=== PATIENT | female | born 2000 | race Caucasian/White ===

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

== ENCOUNTER 2020-12-14 13:18 | Emergency (ER) | payer BC, MEDICAID ==
[2020-12-14] MEDS ORDERED: Metoclopramide 10 MG/2 ML SDV IM ONE (14:07)
[2020-12-14] MEDS ORDERED: Ketorolac 30 MG/ML SDV IM ONE (14:07)
[2020-12-14] MEDS ORDERED: diphenhydrAMINE 50 MG/ML SDV IM ONE (14:07)
--- NOTE | 2020-12-14 14:41 | EDM.PDOC ---
ED HPI GENERAL MEDICAL PROBLEM - General Chief Complaint: Headache Stated Complaint: MIGRAINE X 4 DAYS SENT BY [facility] Time Seen by Provider: 12/14/20 13:32 Source of Information: Reports: Patient, RN Notes Reviewed History Limitations: Reports: No Limitations - History of Present Illness INITIAL COMMENTS - FREE TEXT/NARRATIVE: Patient is a 20-year-old female who presents to the ER for a headache that has been present for the past 4 days. Patient notes she has a history of allergies, and she is quite congested and has been this way for the last week. Notes that her headache is between her eyes, and into her temples. States that when she turns her head certain ways, she sees some spots. She does call this a migraine headache however she has not been diagnosed with any sort of migraine issues. She has been using [id number] Claritin for allergy purposes, and use 3 tablets of ibuprofen yesterday at noon but has not taken anything today. She says she is light sensitive but is not sound sensitive. Not having any other sick-like symptoms fever/chills, cough/shortness of breath. She is not on any sort of medications for headache prophylaxis. Headache Pain Score (Numeric/FACES): 5 - Related Data Allergies Allergy/AdvReac Type Severity Reaction Status Date / Time pet dander Allergy Rash Uncoded 12/14/20 13:30 Home Meds: Home Meds Ibuprofen [Motrin] 600 mg PO Q6H PRN 12/14/20 [History] Past Medical History - Past Health History Medical/Surgical History: Denies Medical/Surgical History Respiratory History: Reports: Asthma Gastrointestinal History: Reports: GERD [employer] History: Reports: Psychiatric History: Reports: Anxiety Endocrine/Metabolic History: Reports: Obesity/BMI 30+ - Past Surgical History HEENT Surgical History: Reports: Oral Surgery Social & Family History - Family History Family Medical History: No Pertinent Family History - Tobacco Use Tobacco Use Status *Q: Never Tobacco User Second Hand Smoke Exposure: Yes - Caffeine Use Caffeine Use: Reports: Coffee, Energy Drinks, Soda, Tea - Recreational Drug Use Recreational Drug Use: No ED ROS GENERAL - Review of Systems Review Of Systems: Comprehensive ROS is negative, except as noted in HPI. - Physical Exam Exam: See Below Exam Limited By: No Limitations General Appearance: Alert, WD/WN, No Apparent Distress Throat/Mouth: Normal Inspection, Normal Lips, Normal Teeth, Normal Gums, Normal Oropharynx, Normal Voice (pt has a very nasal voice and does sound fairly congested), No Airway Compromise Head Exam: Sinus Tenderness (bilateral maxillary and frontal) Neck: Normal Inspection Respiratory/Chest: No Respiratory Distress, Lungs Clear, Normal Breath Sounds, No Accessory Muscle Use, Chest Non-Tender Cardiovascular: Normal Peripheral Pulses, Regular Rate, Rhythm, No Edema GI/Abdominal: Normal Bowel Sounds, Soft, Non-Tender, No Distention, No Mass Neuro Exam (Abbreviated): Alert, Oriented, Normal Cognition, No Motor/Sensory Deficits Extremities: Normal Inspection, Normal Capillary Refill Psychiatric: Normal Affect, Normal Mood Skin Exam: Warm, Dry, Intact, Normal Color, No Rash Course - Vital Signs Last Recorded V/S: Last Vital Signs Temp 97.3 F 12/14/20 13:27 Pulse 82 12/14/20 13:27 Resp 16 12/14/20 13:27 BP 125/81 12/14/20 13:27 Pulse Ox 99 12/14/20 13:27 - Orders/Labs/Meds Meds: Medications Discontinued Medications Generic Name Dose Route Start Last Admin Trade Name Pily PRN Reason Stop Dose Admin Diphenhydramine HCl 25 mg 12/14/20 14:07 12/14/20 14:17 Diphenhydramine 50 Mg/Ml Sdv IM 12/14/20 14:08 25 mg ONETIME ONE Administration Ketorolac Tromethamine 30 mg 12/14/20 14:07 12/14/20 14:18 Ketorolac 30 Mg/Ml Sdv IM 12/14/20 14:08 30 mg ONETIME ONE Administration Metoclopramide HCl 10 mg 12/14/20 14:07 12/14/20 14:18 Metoclopramide 10 Mg/2 Ml Sdv IM 12/14/20 14:08 10 mg ONETIME ONE Administration - Re-Assessments/Exams Free Text/Narrative Re-Assessment/Exam: 12/14/20 14:51 Patient presents to the ER for her headache, I do believe this is more of a sinu s/tension headache, patient did not want IV placed I did order some IM medications, she notes that her headache is improving, but would like to go home I did go over sinus congestion medications that she can take, she is willing to try these at home to see if this helps. Departure - Departure Time of Disposition: 14:51 Disposition: Home, Self-Care 01 Condition: Good Clinical Impression: Sinus headache - Discharge Information *PRESCRIPTION DRUG MONITORING PROGRAM REVIEWED*: No *COPY OF PRESCRIPTION DRUG MONITORING REPORT IN PATIENT МАРИЯ: No Instructions: Sinus Headache, [id number] Referrals: PCP,None [Primary Care Provider] - Forms: ED Department Discharge, ED Return to Work/School Form Additional Instructions: You were evaluated in the ED for your headache. You were given a combination of medications for management. This did seem to provide you pretty good relief of your symptoms. Recommend that you go home and rest in a quiet, darkened room. Try also to keep well hydrated. Recommend you try Claritin-D, which is a medication you will need to talk to the pharmacist for, this should help provide actual decongestants, to help relieve some of the congestion in your head. You may also continue to take ibuprofen every 6 hours as needed for ongoing headache relief. Please note this may take a few days, to get some relief from the sinus congestion. Please return to the ED if your symptoms should change or worsen. Sepsis Event Note (ED) - Evaluation Sepsis Screening Result: No Definite Risk - Focused Exam Vital Signs: Vital Signs Temp Pulse Resp BP Pulse Ox 12/14/20 13:27 97.3 F 82 16 125/81 99
== END 2020-12-14 15:07 | disposition home or self-care (01) ==
LOC: JD.ED 13:18
DX: R51.9 Headache, unspecified (principal); J45.909 Unspecified asthma, uncomplicated; E66.9 Obesity, unspecified; Z77.22 Contact with and (suspected) exposure to environmental tobacco smoke (acute) (chronic); Z68.38 Body mass index [BMI] 38.0-38.9, adult; Z91.048 Other nonmedicinal substance allergy status
CPT/HCPCS: 96372; 99283; J1200; J1885; J2765

== ENCOUNTER 2022-06-18 02:45 | Inpatient (IN) | payer BC, MEDICAID ==
[2022-06-18] MEDS ORDERED: Lidocaine 1% 50 ML MDV ONE (03:22)
[2022-06-18] MEDS ORDERED: Sodium Chloride 0.9% 10 ML Syringe FLUSH PRN (03:37)
[2022-06-18] MEDS ORDERED: Lactated Ringers 1,000 ML IV SCH (03:45)
[2022-06-18] MEDS ORDERED: Benzocaine/Menthol 20%-0.5% Spray 78 GM Cannister TOP PRN (04:05)
[2022-06-18] MEDS ORDERED: Acetaminophen 325 MG Tab PO PRN (04:05)
[2022-06-18] MEDS ORDERED: Witch Hazel Medicated Pads 40/Jar TOP PRN (04:05)
[2022-06-18] MEDS ORDERED: Docusate Sodium 100 MG Cap PO PRN (04:05)
[2022-06-18] MEDS ORDERED: Lidocaine 1% 20 ML MDV INJECT ONE (04:05)
[2022-06-18] MEDS: Ibuprofen 600 MG Tab PO PRN ×3 (04:17→22:15)
[2022-06-18] MEDS ORDERED: Lidocaine 1% 50 ML MDV INJECT ONE (04:30)
[2022-06-18] MEDS ORDERED: Sodium Chloride 0.9% 10 ML Syringe FLUSH SCH (09:00)
[2022-06-19] MEDS: Ibuprofen 600 MG Tab PO PRN (09:29)
== END 2022-06-19 16:20 | disposition home or self-care (01) | DRG 560 ==
LOC: JD.OBCHECK 02:45 → JD.OB 02:46 → JD.OBCHECK 02:49 → JD.OB 02:50 → UNDOADMOB 02:50 → INTOOBSV 03:06 → OBSVTOIN 03:06
PROVIDERS: ADMIT Obstetrics & Gynecology; ATTEND Obstetrics & Gynecology
PROC: 10E0XZZ Delivery of Products of Conception, External Approach (ICD-10-PCS; principal; 2022-06-18)
PROC: 0HQ9XZZ Repair Perineum Skin, External Approach (ICD-10-PCS; 2022-06-18)
DX: O99.62 Diseases of the digestive system complicating childbirth (principal); K21.9 Gastro-esophageal reflux disease without esophagitis; O99.52 Diseases of the respiratory system complicating childbirth; J45.909 Unspecified asthma, uncomplicated; O99.334 Smoking (tobacco) complicating childbirth; F17.200 Nicotine dependence, unspecified, uncomplicated; O70.0 First degree perineal laceration during delivery; Z37.0 Single live birth; Z3A.38 38 weeks gestation of pregnancy
CPT/HCPCS: 36415; 59409; 85027; 86592; 86850; 86900; 86901; A9270-GY; J2001

== ENCOUNTER 2023-01-11 10:33 | Emergency (ER) | payer BC, MEDICAID ==
[2023-01-11] MEDS ORDERED: Sodium Chloride 0.9% 1,000 ML IV ONE (11:17)
[2023-01-11] MEDS ORDERED: Ondansetron 4 MG/2 ML SDV IVPUSH ONE (11:17)
[2023-01-11 11:32] LABS: BASOPHILS ABSOLUTE AUTO 0.02 K/mm3 (0.01-0.08); BASOPHILS PERCENT AUTO 0.2 % (0.1-1.2); EOSINOPHILS ABSOLUTE AUTO 0.15 K/mm3 (0.04-0.36); EOSINOPHILS PERCENT AUTO 1.3 (0.7-5.8); HEMATOCRIT 40.9 % (34.1-44.9); IMMATURE GRAN ABSOLUTE AUTO 0.02 K/mm3 (0.00-0.10); IMMATURE GRAN PERCENT AUTO 0.2 % (<=1.0); LYMPHOCYTES ABSOLUTE AUTO 1.77 K/mm3 (1.18-3.74); LYMPHOCYTES PERCENT AUTO 15.2 % (19.3-51.7); MEAN CORPUSCULAR HGB CONC 34.2 g/dl (32.2-35.5); MEAN CORPUSCULAR VOLUME 81.8 fl (79.4-94.8); MEAN PLATELET VOLUME 9.2 fl (9.4-12.3); MONOCYTES ABSOLUTE AUTO 0.69 K/mm3 (0.24-0.36); MONOCYTES PERCENT AUTO 5.9 % (4.7-12.5); NEUTROPHILS PERCENT AUTO 77.2 % (34.0-71.1); PLATELET COUNT,PLT 320 K/mm3 (182-369); WHITE BLOOD CELL COUNT,WBC 11.65 K/mm3 (3.98-10.04)
[2023-01-11 12:10] LABS: ALBUMIN 3.5 g/dl (3.4-5.0); ANION GAP 15.5 (5-15); BILIRUBIN TOTAL 0.8 mg/dL (0.2-1.0); CALCIUM 8.8 mg/dL (8.5-10.1); CREATININE 0.7 mg/dL (0.55-1.02); EST CRCL DRUG DOSING (CG) 95.13 mL/min; MAGNESIUM 1.9 mg/dL (1.8-2.4); POTASSIUM,K 3.5 mEq/L (3.5-5.1); PROTEIN TOTAL,TP 7.2 g/dl (6.4-8.2)
== END 2023-01-11 13:40 | disposition home or self-care (01) ==
LOC: JD.ED 10:33
DX: O21.9 Vomiting of pregnancy, unspecified (principal); J45.909 Unspecified asthma, uncomplicated; J30.81 Allergic rhinitis due to animal (cat) (dog) hair and dander; E66.9 Obesity, unspecified; Z68.34 Body mass index [BMI] 34.0-34.9, adult; Z91.09 Other allergy status, other than to drugs and biological substances; Z3A.08 8 weeks gestation of pregnancy
CPT/HCPCS: 36415; 76817; 80053; 83735; 84702; 85025; 96374; 99284; J2405; J7030

== ENCOUNTER 2023-08-23 14:33 | Inpatient (IN) | payer BC, MEDICAID ==
[~2023-08-23 14:33] MED LIST changes: -Bupivacaine 0.25% 10 ML SDV ONE; +Lidocaine 1% 10 ML MDV ONE; -ePHEDrine 50 MG/ML SDV ONE
[2023-08-23] MEDS ORDERED: Ondansetron 4 MG/2 ML SDV IVPUSH PRN (15:09)
[2023-08-23] MEDS ORDERED: Nalbuphine HCl 10 MG/ 1ML Amp IVPUSH PRN (15:09)
[2023-08-23] MEDS ORDERED: Lidocaine 1% 50 ML MDV INJECT PRN (15:09)
[2023-08-23] MEDS: Lactated Ringers 1,000 ML IV SCH (15:52)
[2023-08-23 15:54] LABS: BASOPHILS ABSOLUTE AUTO 0.1 K/mm3 (0.0-0.2); BASOPHILS PERCENT AUTO 0.4 % (0.0-1.0); EOSINOPHILS ABSOLUTE AUTO 0.2 K/mm3 (0.0-0.4); EOSINOPHILS PERCENT AUTO 1.2 % (0.0-6.0); HEMATOCRIT 39.2 % (37.0-47.0); HEMOGLOBIN 12.6 gm/dl (12.0-16.0); IMMATURE GRAN ABSOLUTE AUTO 0.09 K/mm3 (0.00-0.05); IMMATURE GRAN PERCENT AUTO 0.7 % (0.0-0.4); LYMPHOCYTES PERCENT AUTO 16.4 % (24.0-44.0); MEAN CORPUSCULAR HEMOGLOBIN 24.6 pg (28.0-32.0); MEAN CORPUSCULAR HGB CONC 32.1 g/dl (32.0-36.0); MEAN CORPUSCULAR VOLUME 76.4 fl (83.0-99.0); MEAN PLATELET VOLUME 9.1 fl (9.4-12.3); MONOCYTES ABSOLUTE AUTO 0.7 K/mm3 (0.0-0.8); MONOCYTES PERCENT AUTO 5.8 % (0.0-8.0); NEUTROPHILS ABSOLUTE AUTO 9.1 K/mm3 (1.8-7.7); NEUTROPHILS PERCENT AUTO 75.5 % (41.0-71.0); PLATELET COUNT,PLT 325 K/mm3 (150-400); RED BLOOD CELL COUNT 5.13 M/mm3 (4.10-5.30); WHITE BLOOD CELL COUNT,WBC 12.02 K/mm3 (3.9-11.3)
[2023-08-23] MEDS ORDERED: diphenhydrAMINE 50 MG/ML SDV IVPUSH PRN (16:29)
[2023-08-23] MEDS ORDERED: ePHEDrine 50 MG/ML SDV IVPUSH PRN (16:29)
[2023-08-23] MEDS ORDERED: Phenylephrine 1% 10 MG/ML SDV IVPUSH PRN (16:29)
[2023-08-23] MEDS: fentaNYL 100 MCG/2 ML SDV EPIDUR PRN (16:51)
[2023-08-23] MEDS: Bupivacaine/fentaNYL/NS 100 ML Bag EPIDUR PRN (16:53)
[2023-08-23] MEDS: Oxytocin/Lactated Ringers 30 UNIT/500 ML BAG IV SCH (17:51)
[2023-08-23] MEDS ORDERED: Docusate Sodium 100 MG Cap PO PRN (18:18)
[2023-08-23] MEDS: Ibuprofen 600 MG Tab PO SCH (19:16)
[2023-08-23] MEDS: Benzocaine/Menthol 20%-0.5% Spray 78 GM Cannister TOP PRN (20:20)
[2023-08-23] MEDS: Witch Hazel Medicated Pads 40/Jar TOP PRN (20:20)
[2023-08-24] MEDS: Acetaminophen 325 MG Tab PO PRN (00:48)
[2023-08-24] MEDS: Ibuprofen 600 MG Tab PO SCH (03:48)
[2023-08-24] MEDS ORDERED: Albuterol 6.7 GM Inhaler INH PRN (07:01)
[2023-08-24] MEDS: Prenatal Multivitamin with Calcium/Folic Acid/Iron Tab PO SCH (10:10)
== END 2023-08-24 19:30 | disposition home or self-care (01) | DRG 560 ==
LOC: JD.OBCHECK 14:33 → JD.OB 15:00 → JD.OBCHECK 16:05 → JD.OB 16:06 → OBSVTOIN 18:16 → JD.OB 18:17
PROVIDERS: ADMIT Obstetrics & Gynecology; ATTEND Obstetrics & Gynecology
PROC: 10E0XZZ Delivery of Products of Conception, External Approach (ICD-10-PCS; principal; 2023-08-23)
PROC: 0HQ9XZZ Repair Perineum Skin, External Approach (ICD-10-PCS; 2023-08-23)
PROC: 3E0R3BZ Introduction of Anesthetic Agent into Spinal Canal, Percutaneous Approach (ICD-10-PCS; 2023-08-23)
PROC: 00HU33Z Insertion of Infusion Device into Spinal Canal, Percutaneous Approach (ICD-10-PCS; 2023-08-23)
DX: O99.52 Diseases of the respiratory system complicating childbirth (principal); Z37.0 Single live birth; O70.0 First degree perineal laceration during delivery; J45.909 Unspecified asthma, uncomplicated; Z98.890 Other specified postprocedural states; Z87.891 Personal history of nicotine dependence; Z3A.38 38 weeks gestation of pregnancy
CPT/HCPCS: 36415; 59025; 59409; 85025; 86592; 86850; 86900; 86901; A9270-GY; J3010; J3490; J7120; J7999